=== PATIENT | female | born 1990 | race Caucasian/White ===

== ENCOUNTER 2023-09-16 08:18 | Emergency (ER) | payer SELFPAY ==
[2023-09-16 08:20] VITALS: BP 157/93; PULSE 101; RESP 18; TEMP 36.6; O2SAT 98
--- NOTE | 2023-09-16 08:37 | ED.DENTAL ---
HPI - Dental/Oral General Chief complaint: Dental/Oral Stated complaint: tooth abcess Time Seen by Provider: 09/16/23 08:29 History of Present Illness HPI Narrative: 33-year-old female presenting to the emergency department for evaluation of left-sided upper facial swelling secondary to dental pain. Patient states she has had worsening pain over the last 2 days. Patient has not been able follow-up with a dentist. Patient does have an abscess that is amenable to drainage. Related Data Allergies Allergy/AdvReac Type Severity Reaction Status Date / Time No Known Allergies Allergy Verified 09/16/23 08:28 Review of Systems Review of Systems: All systems reviewed & are unremarkable except as noted in HPI and below Exam Narrative: APPEARANCE: Well appearing, no pain, no distress, well-nourished. HEAD: normocephalic, atraumatic. EYES: PERRLA/EOMI, conjunctivae clear. Mouth: Dental abscess amenable to drainage. NECK: Supple. No adenopathy, no masses. RESPIRATORY: Airway patent, respirations nonlabored. Clear to auscultation bilaterally, no rales, rhonchi, wheezing. CARDIOVASCULAR: Regular rate and rhythm without murmurs rubs or gallops. ABDOMINAL: Soft, nontender, nondistended, normal bowel sounds MUSCULOSKELETAL: Moves all extremities. Strength/ROM intact, No edema, No calf tenderness. NEURO: Alert. Cranial nerves II through XII intact. Grossly intact SKIN: Warm, dry. Normal Color Course Course Emergency Course: 33-year-old female presented to ED for evaluation of facial swelling and dental abscess. Abscess was drained successfully and patient felt significantly improved. Patient was started on antibiotics for home. Patient was encouraged of close follow-up with her dentist. All questions concerns were addressed. Vital Signs Vital signs: Vital Signs Temperature 97.9 F 09/16/23 08:20 Pulse Rate 101 H 09/16/23 08:20 Respiratory Rate 18 09/16/23 08:20 Blood Pressure 157/93 H 09/16/23 08:20 Pulse Oximetry 98 09/16/23 08:20 Oxygen Delivery Room Air 09/16/23 08:20 Temperature 97.9 F 09/16/23 08:20 Pulse Rate 96 09/16/23 09:47 Respiratory Rate 20 09/16/23 09:47 Blood Pressure 131/76 09/16/23 09:47 Pulse Oximetry 100 09/16/23 09:47 Oxygen Delivery Room Air 09/16/23 08:20 Procedures Abscess I/D oral: Side (if applicable): left Local Anesthetic: bupivacaine 0.5% Technique: incised with #11 blade Amount of fluid expressed (mL): 3 Irrigation: Yes I&D Results: Pus and Blood Abcess I&D Additional Comments: Patient felt improved with treatment Discharge Plan Discharge Clinical Impression: Dental abscess, Dental caries Patient Disposition: Home, Self-Care Condition: Stable Instructions: Antibiotic Form, Dental Abscess (ED) Additional Instructions: Warm saltwater gargles for the next 24 hours. Antibiotic as directed until completed. Have close follow-up with her dentist. Tylenol and ibuprofen for pain control. If you have any worsening symptoms and please call or return to the emergency department. Prescriptions: New amoxicillin-pot clavulanate 875-125 mg tablet 1 tablet PO Q12H Qty: 14 0RF Follow-up/Referrals: PHYSICIAN,BATTERY FILLER [Primary Care Provider] -
[2023-09-16] MEDS: AMOXICILLIN/CLAVULANATE K 875-125 MG TAB 1 TABLET PO (09:45)
[2023-09-16 09:47] VITALS: BP 131/76; PULSE 96; RESP 20; O2SAT 100
== END 2023-09-16 09:48 | disposition home or self-care (01) ==
PROVIDERS: Emergency Provider Emergency Medicine
DX: K04.7 Periapical abscess without sinus (principal); K02.9 Dental caries, unspecified
CPT/HCPCS: 41800; 99283; A9270